=== PATIENT | female | born 1965 | race Caucasian/White ===

== ENCOUNTER 2017-07-22 11:46 | Inpatient (IN) | payer OTHER ==
[~2017-07-22] VITALS: Ht 154.9 cm; Wt 73.9 kg
--- NOTE | ~2017-07-22 | HC ---
[facility] [place] [address] CONSULTATION Name: LORE ALEGRIA Room #: 417-I [facility] IN M.R.#: [id number] Admission: 07/22/17 Attend Phys: Rubens Huizar Discharge: 07/24/17 Date of : 67 Report #: [id number] THIS REPORT FOR: //name// CC: [facility] [facility] DATE OF SERVICE: 07/23/2017 HISTORY OF PRESENT ILLNESS: The patient is a 51-year-old white female with a 3-day history of slurred speech. She was noted to have a functional decline. She was having difficulty expressing herself. She was brought in to [facility] and an MRI did show evidence of multiple CVAs, left insular, left parietal and temporal. These were all noted to be in the left middle cerebral artery territory. Neurology has been involved. We are seeing her in rehabilitation medicine consultation. PAST MEDICAL HISTORY: Does include a prior CVA 2 years ago per the patient's history and hospital records. The patient thinks that she has some weakness of the left side. She has a history of diabetes mellitus, elevated lipids, positive tobacco, depression. MEDICATIONS: Please see the full medication listing. ALLERGIES: No known drug allergies. SOCIAL HISTORY: She lives with a cousin. The cousin apparently has her own medical issues and is disabled and assisted the patient with some of her bathing and some of her dressing from her prior stroke. REVIEW OF SYSTEMS: No complaints of chest pain, shortness of breath or abdominal discomfort. She has some frustration with her difficulty with communication. She did not offer any focal extremity pain complaints. PHYSICAL EXAMINATION: GENERAL: A 51-year-old white female in no obvious distress. VITAL SIGNS: Last recorded temperature is 98.1, pulse 69, respirations 16, blood pressure 131/61. NEUROLOGIC: The patient is alert. HEENT: Appeared to be benign. She has obvious difficulty with word finding and there is a latency to her responses. She has functional range of motion of both upper and lower extremities. I would grade her strength at 3+ to 4-/5. DTRs are trace to 1. ASSESSMENT: A 51-year-old white female with the following problem list: 1. Left middle cerebral artery territory, multiple cerebrovascular accidents. 2. Expressive, apparently greater than receptive aphasia. [address] [address] CONSULTATION Name: LORE ALEGRIA Room #: [facility]-I [facility] IN M.R.#: [id number] Admission: 07/22/17 Attend Phys: Rubens Huizar Discharge: 07/24/17 Date of : 67 Report #: [id number] 3. Slurred speech/dysarthria. 4. Dysphagia, on mechanical soft nectar thickened liquid. 5. Functional mobility and ADL deficits. 6. Past history of cerebrovascular accident approximately 2 years ago per patient's history and chart record. 7. Diabetes mellitus. 8. Tobacco abuse. 9. History of depression. PLAN: Therapy evaluations are underway. She certainly may benefit from an acute in-hospital inpatient rehabilitation stay to maximize her functional independence to try to return back to the home setting. We will be glad to follow along with you regarding rehab therapy needs. <ELECTRONICALLY SIGNED> By: Rodney German MD 07/27/17 1116 1220 1435 Rodney German MD /PMT
--- NOTE | ~2017-07-22 | 2DMMODE ---
[facility] [place] [address] 2 D/M-MODE ECHOCARDIOGRAM Name: LORE ALEGRIA Room #: 417-I ADM IN .R.#: [id number] Admission: 07/22/17 Attend Phys: Rubens Prieto Discharge: Date of : 67 Date of Service: 07/22/17 1630 Report #: [id number] THIS REPORT FOR: //name// APPROVED REPORT Study performed: 07/22/2017 14:42:48 EXAM: Comprehensive 2D, Doppler, and color-flow Echocardiogram Patient Location: ER Room #: 11 Status: routine BSA: 1.76 HR: 67 bpm BP: 120/45 mmHg Rhythm: NSR Other Information Study Quality: Adequate/low parasternal window. Indications TIA. Hx: CVA, tobacco abuse Echo Enhancing Agent Indication: Rule out Shunt Agent(s) / Amount(s) Used: Agitated Saline 6 cc 2D Dimensions RVDd: 28.29 mm LVEF(%): 55.03 (>50%) IVSd: 8.81 (7-11mm) LVOT Diam: 19.38 (18-24mm) LVDd: 42.15 mm PWd: 8.18 (7-11mm) LVDs: 30.22 (25-40mm) Aortic Root: 29.23 mm Aguiar's LVEF: 55.03 % Volumes Left Atrial Volume (Systole) Single Plane 4CH: 39.03 mL Single Plane 2CH: 44.31 mL LA ESV Index: 25.00 mL/m2 Aortic Valve AoV Peak Fer.: 1.74 m/s AO Peak Gr.: 12.14 mmHg LVOT Max P.24 mmHg LVOT Max V: 1.25 m/s SHWETA Vmax: 2.11 cm2 [facility] [place] [address] 2 D/M-MODE ECHOCARDIOGRAM Name: LORE ALEGRIA Room #: 417-I [facility] IN M.R.#: [id number] Admission: 07/22/17 Attend Phys: Rubens Prieto Discharge: Date of : 67 Date of Service: 07/22/17 1630 Report #: [id number] Mitral Valve E/A Ratio: 0.9 MV Decel. Time: 254.04 ms MV E Max Fer.: 0.89 m/s MV A Fer.: 0.97 m/s MV PHT: 73.67 ms IVRT: 73.82 ms Pulmonary Valve PV Peak Fer.: 1.40 m/s PV Peak Gr.: 7.84 mmHg Pulmonary Vein P Vein S: 0.80 m/s P Vein A: 0.35 m/s P Vein D: 0.41 m/s P Vein A Dur.: 124.6 msec P Vein S/D Ratio: 1.95 Tricuspid Valve TR Peak Fer.: 2.49 m/s RAP Estimate: 5.00 mmHg TR Peak Gr.: 24.78 mmHg PA Pressure: 30.00 mmHg Left Ventricle The left ventricle is normal size. There is normal LV segmental wall motion. There is normal left ventricular wall thickness. Left ventricular systolic function is normal. LVEF is 60-65%. Mild diastolic dysfunction is present (impaired relaxation pattern). Right Ventricle The right ventricle is normal size. The right ventricular systolic function is normal. Atria The left atrium size is normal. Injection of bubbles documented no interatrial shunt. The right atrium size is normal. Aortic Valve The aortic valve is normal in structure. No aortic regurgitation is present. There is no aortic valvular stenosis. Mitral Valve The mitral valve is normal in structure. Trace mitral regurgitation. Tricuspid Valve [address] [address] 2 D/M-MODE ECHOCARDIOGRAM Name: LORE ALEGRIA Room #: 417-I [facility] IN [facility]#: [id number] Admission: 07/22/17 Attend Phys: Rubens Prieto Discharge: Date of : 67 Date of Service: 07/22/17 1630 Report #: [id number] The tricuspid valve is normal in structure. Trace tricuspid regurgitation. Estimated PAP is 30mmHg. Pulmonic Valve Pulmonic valve is not well visualized. Great Vessels The aortic root is normal in size. The ascending aorta is normal in size. IVC is normal in size and collapses >50% with inspiration. Pericardium There is no pericardial effusion. <Conclusion> The left ventricle is normal size. LVEF is 60-65%. The left atrium size is normal. The right atrium size is normal. The aortic valve is normal in structure. The mitral valve is normal in structure. Trace mitral regurgitation. The tricuspid valve is normal in structure. Trace tricuspid regurgitation. Estimated PAP is 30mmHg. Pulmonic valve is not well visualized. There is no pericardial effusion. Injection of bubbles documented no interatrial shunt. <ELECTRONICALLY SIGNED> By: Jered Gilbert MD 07/22/17 163 [id number] 29 Jered Gilbert MD /INF
--- NOTE | ~2017-07-22 | EKG ---
[address] [place] [address] ELECTROCARDIOGRAM REPORT Name: LORE ALEGRIA Room #: 417-I ADM IN M.R.#: [id number] Admission: 07/22/17 Attend Phys: Rubens Huizar Discharge: Date of : 67 Report #: [id number] THIS REPORT FOR: //name// [facility] ED Test Date: 2017-07-22 Test Time: 12:28:27 Pat Name: LORE ALEGRIA Department: Room: [facility] Gender: F Sr. Vendor Management Associate: ROBERT : 1965 Requested By: Fernando Holder Order Number: [id number] MD: Malick Arauz Measurements Intervals [place] Rate: 66 P: 49 IN: 133 QRS: 58 QRSD: 93 T: -85 QT: 403 QTc: 423 Interpretive Statements Sinus rhythm Probable inferior infarct, age indeterminate No previous ECG available for comparison Electronically Signed On 07-23-2017 13:23:20 CDT by Malick Arauz [email or web address] <ELECTRONICALLY SIGNED> By: Malick Arauz MD 07/23/17 1323 1228 1228 Malick Arauz MD /CHACHO
[2017-07-22 11:48] VITALS: BP 128/48
[2017-07-22] MEDS ORDERED: LIPITOR80 MG PO (12:02)
[2017-07-22] MEDS ORDERED: GLUCOPHAGE1000 MG PO (12:03)
[2017-07-22] MEDS ORDERED: ASPIR 8181 MG PO (12:03)
[2017-07-22] MEDS ORDERED: ARIPIPRAZOLE OD10 MG PO (12:03)
[2017-07-22] MEDS ORDERED: PROZAC20 MG PO (12:04)
[2017-07-22 12:31] LABS: BASOPHILS 0.6 % (0.0-2.0); EOSINOPHILS 2.7 % (0.0-3.0); HEMATOCRIT 40.5 % (37.0-47.0); HEMOGLOBIN 13.6 gm/dL (12.0-15.0); LYMPHOCYTES 28.9 % (24.0-44.0); MCH 29.4 pg (26.0-34.0); MCHC 33.6 g/dL (28.0-37.0); MCV 87.4 fL (80.0-100.0); MONOCYTES 5.6 % (1.0-8.0); PLATELET COUNT 320 thou/uL (150-400); POLYS 62.2 % (36.0-66.0); RBC 4.64 mil/uL (4.20-5.00); RDW 14.9 % (10.5-14.5); WBC 8.1 thou/uL (4.0-11.0)
[2017-07-22 12:32] LABS: MANUAL DIFF NO
[2017-07-22 12:34] LABS: ANION GAP 9 mmol/L (7-16); BUN 14 mg/dL (7-18); CALCIUM 9.1 mg/dL (8.5-10.1); CHLORIDE 104 mmol/L (98-107); CO2 25 mmol/L (21-32); CREATININE 1.1 mg/dL (0.6-1.0); GLUCOSE 275 mg/dL (74-106); POTASSIUM 3.7 mmol/L (3.5-5.1); SODIUM 138 mmol/L (136-145)
[2017-07-22 12:43] LABS: ALBUMIN 3.3 g/dL (3.4-5.0); ALKALINE PHOSPHATASE 93 U/L (46-116); MAGNESIUM 1.1 mg/dL (1.8-2.4); SGOT 12 U/L (15-37); SGPT 10 U/L (30-65); TOTAL BILIRUBIN 0.3 mg/dL (<0.1-1.0); TOTAL PROTEIN 7.4 g/dL (6.4-8.2); TROPONIN-I < 0.04 ng/mL (<0.04-0.07)
[2017-07-22 12:48] LABS: APTT 25.9 Seconds (24.5-32.8); PROTIME 10.1 Seconds (9.3-11.4)
[2017-07-22 14:11] LABS: CHOLESTEROL 138 mg/dL (<200); HDL CHOLESTEROL 32 mg/dL (>40); LDL CHOLESTEROL 56 mg/dL (<100); TC:HDL 4.3 Ratio (Not establshd); TRIGLYCERIDE 253 mg/dL (<150); VLDL 51 mg/dL (<40)
[2017-07-22 17:27] VITALS: BP 116/70
[2017-07-22 17:30] VITALS: BP 107/66
[2017-07-22 20:45] VITALS: BP 124/55
[2017-07-23 02:55] VITALS: BP 117/67
[2017-07-23 07:00] VITALS: BP 131/61
[2017-07-23 15:31] VITALS: BP 114/42
[2017-07-23 19:28] VITALS: BP 114/46
[2017-07-24 03:14] VITALS: BP 124/72
[2017-07-24 07:30] VITALS: BP 120/68
[2017-07-24] MEDS ORDERED: ASPIRIN325 PO (10:10)
[2017-07-24 11:56] VITALS: BP 120/68
[2017-07-28 01:06] LABS: ANTITHROMBIN III 115 % (75-135); DIL. RUSSELL VIPER VENOM 35.6 sec (0.0-47.0)
[2017-07-28 17:14] LABS: PROTHROMBIN GENE MUTATION Negative (())
== END 2017-07-24 16:45 | disposition home or self-care (01) | DRG 65 ==
LOC: ER 11:46 → 4E 13:45 → EROBS 13:45 → 4E 14:45
PROVIDERS: Emergency Medicine; Hospitalist
DX: I63.9 Cerebral infarction, unspecified (principal); E44.1 Mild protein-calorie malnutrition; F17.210 Nicotine dependence, cigarettes, uncomplicated; R47.01 Aphasia; E83.42 Hypomagnesemia; E11.9 Type 2 diabetes mellitus without complications; F32.9 Major depressive disorder, single episode, unspecified; E78.5 Hyperlipidemia, unspecified; R47.81 Slurred speech; R47.1 Dysarthria and anarthria; I66.9 Occlusion and stenosis of unspecified cerebral artery; Z79.82 Long term (current) use of aspirin; Z79.899 Other long term (current) drug therapy; Z88.2 Allergy status to sulfonamides; Z28.9 Immunization not carried out for unspecified reason
CPT/HCPCS: 10183